=== PATIENT | female | born 1980 | race Caucasian/White ===

== ENCOUNTER 2021-05-16 15:47 | Inpatient (IN) | payer MEDICAID, OTHER, SELFPAY ==
[~2021-05-16] VITALS: Ht 170.2 cm; Wt 103.2 kg
--- NOTE | 2021-05-16 16:18 | NUR ---
BIB CCT FROM [facility], TRANSFERRING FOR PNEUOMONIA AND SEPSIS. PT HAS TESTED COVID NEGATVE AT [facility], RECEIVED BLOOD CX X 2, AZITHROMYCIN, VANCOMYCIN AND ZOSYN ATMOSPHERIC PHYSICS PROFESSOR. GIVEN 3L NS ATMOSPHERIC PHYSICS PROFESSOR BY [facility] AND TRANSPORT TEAM COMBINED. ON ARRIVAL, PT WEARING NON-REBREATHER AT 15L/MIN, SATURATING 90-93%, RR 17-23. PT ABLE TO SPEAK IN FULL SENTENCES WITHOUT DIFFICULTY, RESPS EVEN AND UNLABORED. LABWORK FROM [facility] FOLLOWS: WBC 7.8, K 3.0, LACTIC ACID 1.7, NA 128, STEAK SAUCE MAKER 1.2, BUN 18, PLT 158. ABG: PH 7.43, CO2 42, PO2 56, BCARB 28 PT GIVEN AZITHROMAX, VANCO, ZOSYN (ALL IV) ATMOSPHERIC PHYSICS PROFESSOR, ALBUTEROL, SOLUMEDROL 125 MG, 3L TOTAL IV FLUIDS, 50 MCG F[place] ATMOSPHERIC PHYSICS PROFESSOR. ALL MONITORS IN PLACE, EKG OBTAINED ON ARRIVAL. AWAITING MD AND ORDERS AT THIS TIME.
--- NOTE | 2021-05-16 16:45 | NUR ---
LORI ELLIS AT BEDSIDE. RECORDS FROM [facility] REVIEWED BY
[2021-05-16] MEDS ORDERED: SODIUM CHLORIDE 0.9% 1,000ML IVBOLUS ONE (17:00)
[2021-05-16] MEDS ORDERED: SODIUM CHLORIDE FLUSH 10ML SYR IVF ONE (17:00)
[2021-05-16] MEDS ORDERED: PLEASE ENTER HEIGHT MC SCH (17:00)
--- NOTE | 2021-05-16 17:00 | NUR ---
PT PROVIDED WITH DINNER PER MD ORDER, TOLERATING WELL. PT A&O, RESPS EVEN AND UNLABORED, SINUS TACH RATE 90'S ON SOURCING ANALYST WITH NO ECTOPY NOTED. PT NOTES RIGHT SIDED CHEST PAIN, MD AWARE, PER MD, THIS IS NOT CARDIAC IN NATURE AND NO TROPONIN INDICATED.
[2021-05-16] MEDS ORDERED: MORPHINE SULFATE 4 MG/ML, 1ML ONE ×2 (17:25→19:34)
[2021-05-16] MEDS: MORPHINE SULFATE 4 MG/ML, 1ML IVPush PRN ×2 (17:34→19:37)
--- NOTE | 2021-05-16 17:35 | NUR ---
BP 87/50, NS BOLUS HELD PER MD ORDER PT HAS ALREADY RECEIVED 3 L IVF PRIMARY SUBSTANCE ABUSE COUNSELOR. EDMD NOTIFIED REPEAT BP 87/50, MORPHINE HELD (ORDERED FOR RIGHT SIDED CHEST PAIN) D/T HYPOTENSION. MD ORDERED SETUP FOR CENTRAL LINE. SET UP IN PROGRESS.
--- NOTE | 2021-05-16 17:53 | NUR ---
CENTRAL LINE SETUP COMPLETE, MD ELLIS NOTIFIED PT IS READY FOR CENTRAL LINE. ORDER FOR LEVOPHED REQUESTED FROM .
--- NOTE | 2021-05-16 18:16 | NUR ---
LORI ELLIS AT BEDSIDE FOR CENTRAL LINE PLACEMENT.
[2021-05-16] MEDS ORDERED: NOREPINEPHRINE 8 MG in SODIUM CHLORIDE 0.9% 242 ML IV ONE ×2 (18:26→19:30)
--- NOTE | 2021-05-16 18:39 | NUR ---
CENTRAL LINE PLACED, CXR COMPLETED. BP CURRENTLY 100/60, PT IS A&O, RESPS EVEN AND UNLABORED, NADN. LEVO AT BEDSIDE, BP CURRENTLY NOT REQUIRING INFUSION. PT HAS NO COMPLAINT AT THIS TIME.
[2021-05-16] MEDS ORDERED: LIDOCAINE 1%, 10ML ONE (18:55)
--- NOTE | 2021-05-16 19:05 | NUR ---
report to PRASAD Jensen at bedside. pt a&o, resps even and unlabored, nsr on sales technician home theater with no ectopy. current bp 99/54. pt to have thoracentesis, pt updated with poc. IR tech setting up at bedside.
--- NOTE | 2021-05-16 19:22 | NUR ---
LEVOPHED INITIATED AT THIS TIME. DR. RODRIGUEZ AT BEDSIDE PERFORMING THORACENTESIS.
[2021-05-16] MEDS ORDERED: NOREPINEPHRINE 8 MG in SODIUM CHLORIDE 0.9% 242 ML IV PRN (20:00)
[2021-05-16] MEDS ORDERED: ONDANSETRON 2MG/ML, 2ML IVPush PRN (20:00)
[2021-05-16] MEDS ORDERED: POLYETHYLENE GLYCOL 17 GM PACKET PO PRN (20:00)
[2021-05-16] MEDS: SODIUM CHLORIDE 0.9% 1,000 ML IV SCH (20:30)
[2021-05-16] MEDS: CEFTRIAXONE 2 GM in DEXTROSE 5% 50 ML IVPB SCH (20:30)
[2021-05-16 20:43] LABS: ALANINE AMINOTRANSFERASE 18 U/L (12-78); ALBUMIN 2.1 g/dL (3.4-5.0); ANION GAP 9 mmol/L (5-15); CALCIUM 7.7 mg/dL (8.5-10.1); CHLORIDE 99 mmol/L (98-107); CREATININE 0.92 mg/dL (0.55-1.02)
--- NOTE | 2021-05-16 20:47 | NUR ---
Report given to PRASAD doty no further questions at this time.
[2021-05-16 20:48] LABS: ALKALINE PHOSPHATASE 47 U/L (45-117); BILIRUBIN,TOTAL 0.7 mg/dL (0.2-1.0); TOTAL PROTEIN 5.8 g/dL (6.4-8.2); TROPONIN I < 0.015 ng/mL (0.000-0.045)
[2021-05-16] MEDS: AZITHROMYCIN 500 MG in SODIUM CHLORIDE 0.9% 250 ML IV SCH (21:38)
[2021-05-16] MEDS: ENOXAPARIN 80 MG/0.8 ML SQ SCH (22:58)
[2021-05-16 23:07] VITALS: BP 109/71
[2021-05-16] MEDS ORDERED: ALBU18HF INH (23:35)
[2021-05-16] MEDS: ALBUTEROL-IPRATROPIUM MDI INH INH SCH (23:36)
[2021-05-17] VITALS (16 sets, daily range): BP systolic 92–113; BP diastolic 52–74
[2021-05-17 05:14] LABS: TROPONIN I < 0.015 ng/mL (0.000-0.045)
[2021-05-17] MEDS ORDERED: NICOTINE 14MG/24 HR PATCH.TD24 TD ONE (06:00)
[2021-05-17] MEDS ORDERED: MAGNESIUM SULFATE PMX 2GM/50ML 50 ML IV ONE (06:00)
[2021-05-17] MEDS ORDERED: VANCOMYCIN PER PHARMACY MC PRN (06:00)
[2021-05-17] MEDS ORDERED: POTASSIUM CHLORIDE 40 MEQ in SODIUM CHLORIDE 0.9% 500 ML IV ONE (06:00)
[2021-05-17] MEDS ORDERED: PHARMACOKINETIC CONSULTATION MC ONE (06:30)
[2021-05-17] MEDS ORDERED: PHARMACOKINETIC MONITORING MC PRN (06:30)
[2021-05-17] MEDS: INSULIN LISPRO 100 UNITS/ML, PEN SQ-INSULIN SCH ×4 (07:33→20:09)
[2021-05-17] MEDS ORDERED: VANCOMYCIN 2,000 MG in SODIUM CHLORIDE 0.9% 500 ML IV ONE (08:00)
[2021-05-17] MEDS: SODIUM CHLORIDE 0.9% 1,000 ML IV SCH ×2 (08:29→20:10)
[2021-05-17 09:56] LABS: MEAN CORPUSCULAR HEMOGLOBIN 37.2 pg (27.0-34.8); MEAN CORPUSCULAR HGB CONC 34.1 g/dL (32.4-35.8); MEAN PLATELET VOLUME 8.5 fL (7.4-10.4); PLATELET COUNT 145 x10^3/uL (130-400); RED BLOOD COUNT 2.73 x10^6/uL (3.82-5.3)
[2021-05-17 10:07] LABS: ALANINE AMINOTRANSFERASE 14 U/L (12-78); ALBUMIN 1.9 g/dL (3.4-5.0); ANION GAP 7 mmol/L (5-15); CALCIUM 8.2 mg/dL (8.5-10.1); CHLORIDE 103 mmol/L (98-107)
[2021-05-17 10:13] LABS: ALKALINE PHOSPHATASE 57 U/L (45-117); BILIRUBIN,TOTAL 0.4 mg/dL (0.2-1.0); CREATININE 0.64 mg/dL (0.55-1.02); TOTAL PROTEIN 5.6 g/dL (6.4-8.2); TROPONIN I < 0.015 ng/mL (0.000-0.045)
[2021-05-17 10:24] LABS: BANDS%(MANUAL) 43 % (0-7); LYMPH#(MANUAL) 0.34 x10^3/uL (1-3.4); LYMPHS% (MANUAL) 3 % (22-44); MONOS#(MANUAL) 0.57 x10^3/uL (0.3-2.7); MONOS% (MANUAL) 5 % (2-9); PMNS WITH VACUOLES 1+; SEG#(MANUAL) 5.59 x10^3/uL (1.8-6.8); SEGS% (MANUAL) 49 % (42-75)
[2021-05-17 10:25] LABS: <PLATELET ESTIMATE> ADEQUATE; <PLT MORPHOLOGY> NORMAL PLT MORPH; ANISOCYTOSIS 1+; POLYCHROMASIA 1+
[2021-05-17 10:27] LABS: VANCOMYCIN,RANDOM 44.2 mcg/mL
[2021-05-17] MEDS: ALBUTEROL-IPRATROPIUM MDI INH INH SCH ×3 (11:00→20:06)
[2021-05-17] MEDS: ENOXAPARIN 80 MG/0.8 ML SQ SCH ×2 (11:01→22:55)
[2021-05-17] MEDS ORDERED: ERGOCALCIFEROL 50,000 UNIT CAPSULE PO SCH (12:30)
[2021-05-17] MEDS ORDERED: OMNIPAQUE 350 MG/ML, 100ML BOTTLE ONE (12:54)
[2021-05-17] MEDS: VANCOMYCIN 1,800 MG in SODIUM CHLORIDE 0.9% 250 ML IV SCH (16:27)
[2021-05-17] MEDS: ACETAMINOPHEN 325 MG TABLET PO PRN (18:17)
[2021-05-17] MEDS: AZITHROMYCIN 500 MG in SODIUM CHLORIDE 0.9% 250 ML IV SCH (20:06)
[2021-05-17] MEDS: CEFTRIAXONE 2 GM in DEXTROSE 5% 50 ML IVPB SCH (20:06)
[2021-05-17] MEDS ORDERED: ZOLPIDEM 5MG TABLET PO ONE (20:30)
[2021-05-18] MEDS: VANCOMYCIN 1,800 MG in SODIUM CHLORIDE 0.9% 250 ML IV SCH ×3 (00:29→23:36)
[2021-05-18] MEDS: SODIUM CHLORIDE 0.9% 1,000 ML IV SCH (00:29)
[2021-05-18 04:43] LABS: MEAN CORPUSCULAR HEMOGLOBIN 37.5 pg (27.0-34.8); MEAN PLATELET VOLUME 8.3 fL (7.4-10.4); PLATELET COUNT 141 x10^3/uL (130-400); RED BLOOD COUNT 2.39 x10^6/uL (3.82-5.3)
[2021-05-18 04:48] LABS: CALCIUM 8.1 mg/dL (8.5-10.1); CREATININE 0.55 mg/dL (0.55-1.02)
[2021-05-18 05:00] LABS: ANION GAP 3 mmol/L (5-15); CHLORIDE 106 mmol/L (98-107)
[2021-05-18 05:23] LABS: BAND#(MANUAL) 2.65 x10^3/uL; BANDS%(MANUAL) 26 % (0-7); EOS% (MANUAL) 1 % (1-7); LYMPH#(MANUAL) 1.12 x10^3/uL (1-3.4); LYMPHS% (MANUAL) 11 % (22-44); MONOS#(MANUAL) 0.71 x10^3/uL (0.3-2.7); MONOS% (MANUAL) 7 % (2-9); SEG#(MANUAL) 5.61 x10^3/uL (1.8-6.8); SEGS% (MANUAL) 55 % (42-75)
[2021-05-18 05:24] LABS: <PLATELET ESTIMATE> ADEQUATE; <PLT MORPHOLOGY> NORMAL PLT MORPH; ANISOCYTOSIS 1+; PMNS WITH VACUOLES 1+; POLYCHROMASIA 1+; TOXIC GRAN 1+
[2021-05-18] MEDS: INSULIN LISPRO 100 UNITS/ML, PEN SQ-INSULIN SCH ×4 (05:59→23:06)
[2021-05-18] MEDS: ALBUTEROL-IPRATROPIUM MDI INH INH SCH ×4 (05:59→20:25)
[2021-05-18] MEDS: ACETAMINOPHEN 325 MG TABLET PO PRN (07:55)
[2021-05-18] MEDS: POTASSIUM CHLORIDE 20 MEQ TAB.ER.PRT PO SCH ×2 (07:56→16:02)
[2021-05-18] MEDS: ENOXAPARIN 40 MG/0.4 ML SQ SCH (07:56)
[2021-05-18 19:52] VITALS: BP 118/75
[2021-05-18] MEDS: CEFTRIAXONE 2 GM in DEXTROSE 5% 50 ML IVPB SCH (20:25)
[2021-05-18] MEDS: AZITHROMYCIN 500 MG in SODIUM CHLORIDE 0.9% 250 ML IV SCH (21:16)
[2021-05-19 01:58] VITALS: BP 101/57
[2021-05-19] MEDS: ALBUTEROL-IPRATROPIUM MDI INH INH SCH ×4 (05:45→21:45)
[2021-05-19] MEDS: GABAPENTIN 300 MG CAPSULE PO PRN ×2 (05:45→22:00)
[2021-05-19] MEDS: ACETAMINOPHEN 325 MG TABLET PO PRN ×3 (05:45→22:00)
[2021-05-19 05:55] LABS: MEAN CORPUSCULAR HEMOGLOBIN 37.7 pg (27.0-34.8); MEAN CORPUSCULAR HGB CONC 34.2 g/dL (32.4-35.8); PLATELET COUNT 184 x10^3/uL (130-400); RED BLOOD COUNT 2.51 x10^6/uL (3.82-5.3); RED CELL DISTRIBUTION WIDTH 20.7 % (9.6-15.2)
[2021-05-19 06:02] LABS: ANION GAP 4 mmol/L (5-15); CHLORIDE 108 mmol/L (98-107)
[2021-05-19 06:03] LABS: CREATININE 0.66 mg/dL (0.55-1.02)
[2021-05-19 06:28] LABS: BAND#(MANUAL) 0.28 x10^3/uL; BANDS%(MANUAL) 3 % (0-7); EOS#(MANUAL) 0.09 x10^3/uL (0.0-0.4); EOS% (MANUAL) 1 % (1-7); LYMPH#(MANUAL) 1.38 x10^3/uL (1-3.4); LYMPHS% (MANUAL) 15 % (22-44)
[2021-05-19 06:29] LABS: ANISOCYTOSIS 1+; MONOS#(MANUAL) 0.55 x10^3/uL (0.3-2.7); MONOS% (MANUAL) 6 % (2-9); POLYCHROMASIA 1+; SEGS% (MANUAL) 75 % (42-75)
[2021-05-19 06:30] LABS: <PLATELET ESTIMATE> ADEQUATE; <PLT MORPHOLOGY> NORMAL PLT MORPH
[2021-05-19] MEDS: INSULIN LISPRO 100 UNITS/ML, PEN SQ-INSULIN SCH ×4 (07:00→19:31)
[2021-05-19] MEDS: ENOXAPARIN 40 MG/0.4 ML SQ SCH (10:19)
[2021-05-19 11:03] VITALS: BP 114/69
[2021-05-19 12:23] VITALS: BP 110/73
[2021-05-19] MEDS: VANCOMYCIN 1,800 MG in SODIUM CHLORIDE 0.9% 250 ML IV SCH ×2 (13:49→23:38)
[2021-05-19 19:34] VITALS: BP 126/83
[2021-05-19] MEDS: CEFTRIAXONE 2 GM in DEXTROSE 5% 50 ML IVPB SCH (20:18)
[2021-05-19] MEDS: AZITHROMYCIN 500 MG in SODIUM CHLORIDE 0.9% 250 ML IV SCH (21:45)
[2021-05-20 02:38] VITALS: BP 119/73
[2021-05-20] MEDS: ALBUTEROL-IPRATROPIUM MDI INH INH SCH ×4 (05:36→20:37)
[2021-05-20] MEDS: INSULIN LISPRO 100 UNITS/ML, PEN SQ-INSULIN SCH ×4 (06:24→19:44)
[2021-05-20] MEDS: ENOXAPARIN 40 MG/0.4 ML SQ SCH (07:39)
[2021-05-20] MEDS: ACETAMINOPHEN 325 MG TABLET PO PRN ×2 (07:39→20:37)
[2021-05-20 08:06] VITALS: BP 126/76
[2021-05-20] MEDS: VANCOMYCIN 1,800 MG in SODIUM CHLORIDE 0.9% 250 ML IV SCH (11:00)
[2021-05-20 13:09] VITALS: BP 129/90
[2021-05-20] MEDS: GABAPENTIN 300 MG CAPSULE PO PRN (20:37)
[2021-05-20 20:50] VITALS: BP 144/78
[2021-05-20] MEDS: CEFTRIAXONE 2 GM in DEXTROSE 5% 50 ML IVPB SCH (20:59)
[2021-05-20] MEDS: AZITHROMYCIN 500 MG in SODIUM CHLORIDE 0.9% 250 ML IV SCH (21:53)
[2021-05-21] MEDS: ACETAMINOPHEN 325 MG TABLET PO PRN ×5 (00:19→20:04)
[2021-05-21] MEDS: VANCOMYCIN 1,800 MG in SODIUM CHLORIDE 0.9% 250 ML IV SCH (00:19)
[2021-05-21 00:20] VITALS: BP 132/80
[2021-05-21] MEDS: ALBUTEROL-IPRATROPIUM MDI INH INH SCH ×4 (04:50→20:06)
[2021-05-21] MEDS: INSULIN LISPRO 100 UNITS/ML, PEN SQ-INSULIN SCH ×4 (06:58→20:06)
[2021-05-21] MEDS: ENOXAPARIN 40 MG/0.4 ML SQ SCH (07:43)
[2021-05-21 07:55] VITALS: BP 127/76
[2021-05-21 12:22] VITALS: BP 134/90
[2021-05-21] MEDS ORDERED: VANCOMYCIN 2,000 MG in SODIUM CHLORIDE 0.9% 500 ML IV SCH (17:00)
[2021-05-21] MEDS: GABAPENTIN 300 MG CAPSULE PO PRN (20:03)
[2021-05-21] MEDS: CEFDINIR 300 MG CAPSULE PO SCH (20:03)
[2021-05-21 20:07] VITALS: BP 141/86
[2021-05-21] MEDS: AZITHROMYCIN 500 MG in SODIUM CHLORIDE 0.9% 250 ML IV SCH (21:39)
[2021-05-22] MEDS: ACETAMINOPHEN 325 MG TABLET PO PRN ×2 (01:43→06:12)
[2021-05-22 02:22] VITALS: BP 117/66
[2021-05-22] MEDS: ALBUTEROL-IPRATROPIUM MDI INH INH SCH ×4 (06:12→21:29)
[2021-05-22] MEDS: INSULIN LISPRO 100 UNITS/ML, PEN SQ-INSULIN SCH ×4 (06:43→21:00)
[2021-05-22] MEDS: CEFDINIR 300 MG CAPSULE PO SCH (07:39)
[2021-05-22] MEDS: ENOXAPARIN 40 MG/0.4 ML SQ SCH (07:40)
[2021-05-22 07:43] VITALS: BP 119/71
[2021-05-22] MEDS: LINEZOLID 600 MG TABLET PO SCH ×2 (09:42→21:29)
[2021-05-22 12:14] VITALS: BP 119/72
[2021-05-22 20:25] VITALS: BP 138/88
[2021-05-22] MEDS: GABAPENTIN 300 MG CAPSULE PO PRN (21:41)
[2021-05-23] MEDS: ALBUTEROL-IPRATROPIUM MDI INH INH SCH ×3 (06:44→16:00)
[2021-05-23] MEDS: INSULIN LISPRO 100 UNITS/ML, PEN SQ-INSULIN SCH ×3 (06:44→16:00)
[2021-05-23] MEDS: LINEZOLID 600 MG TABLET PO SCH (09:11)
[2021-05-23] MEDS: ENOXAPARIN 40 MG/0.4 ML SQ SCH (09:11)
[2021-05-23 09:15] VITALS: BP 130/80
[2021-05-23] MEDS ORDERED: ALPR0.254 PO (10:03)
[2021-05-23] MEDS ORDERED: LINE600T15 PO (10:03)
[2021-05-23] MEDS ORDERED: GABA300C PO (10:03)
[2021-05-23] MEDS ORDERED: ALBU18HF INH (11:40)
[2021-05-23 14:00] VITALS: BP 126/74
== END 2021-05-23 17:30 | disposition home or self-care (01) | DRG 720 ==
LOC: ED 17:54 → EDIP 18:27 → CCU 21:07 → 4NE 05-18 16:47
PROVIDERS: ADMIT Internal Medicine; ATTEND Family Medicine
PROC: 02H633Z Insertion of Infusion Device into Right Atrium, Percutaneous Approach (ICD-10-PCS; principal; 2021-05-16)
PROC: B548ZZA Ultrasonography of Superior Vena Cava, Guidance (ICD-10-PCS; 2021-05-16)
PROC: 0W9930Z Drainage of Right Pleural Cavity with Drainage Device, Percutaneous Approach (ICD-10-PCS; 2021-05-16)
DX: A41.9 Sepsis, unspecified organism (principal); J96.01 Acute respiratory failure with hypoxia; R65.21 Severe sepsis with septic shock; E46 Unspecified protein-calorie malnutrition; N17.9 Acute kidney failure, unspecified; J15.212 Pneumonia due to Methicillin resistant Staphylococcus aureus; J90 Pleural effusion, not elsewhere classified; N25.81 Secondary hyperparathyroidism of renal origin; J44.0 Chronic obstructive pulmonary disease with (acute) lower respiratory infection; E55.9 Vitamin D deficiency, unspecified; D53.9 Nutritional anemia, unspecified; E87.1 Hypo-osmolality and hyponatremia; E87.6 Hypokalemia; F17.210 Nicotine dependence, cigarettes, uncomplicated; F32.9 Major depressive disorder, single episode, unspecified; F41.1 Generalized anxiety disorder; Z20.822 Contact with and (suspected) exposure to COVID-19; Z80.0 Family history of malignant neoplasm of digestive organs; Z80.1 Family history of malignant neoplasm of trachea, bronchus and lung; Z80.3 Family history of malignant neoplasm of breast; Z86.711 Personal history of pulmonary embolism; R73.9 Hyperglycemia, unspecified; Z68.35 Body mass index [BMI] 35.0-35.9, adult; Z71.6 Tobacco abuse counseling
CPT/HCPCS: 32555; 36415; 36556; 36600; 71045; 71275; 80048; 80053; 80202; 82306; 82533; 82565; 82607; 82803; 82962; 83036; 83735; 83970; 84443; 84484; 85025; 87040; 87070; 87081; 87205; 93005; 93306; 93970; 96374; 96375; G0378; J0456; J0696; J1650; J3370; J3480; Q9967; U0005; J1815; J2270; J3475; J7030; J7040; J7050; U0003